=== PATIENT | male | born 1990 | race Caucasian/White ===

== ENCOUNTER 2024-10-02 11:44 | Inpatient (IN) | payer OTHER, SELFPAY ==
[2024-10-02 12:28] LABS: #Basophils 0.03 10x3/uL (0.0-0.2); #Eosinophils 0.19 10x3/uL (0.0-0.5); #Monocytes 1.16 10x3/uL (0.0-1.1); #Neutrophils 15.81 10x3/uL (1.5-8.4); %Basophils 0.2 % (0.0-2.0); %Lymphocytes 5.2 % (18.0-47.0); %Monocytes 6.4 % (0.0-10.0); %Neutrophils 86.7 % (40.0-75.0); Hematocrit 44.8 % (38.8-50.0); Hemoglobin 15.3 g/dL (13.5-17.5); Mean Corpuscular HGB CONC 34.2 g/dL (32.0-36.0); Mean Corpuscular Volume 90.7 fL (81.2-95.1); Platelet Count 249 10x3/uL (150-450); RBC Distribution Width 12.4 % (11.5-14.5); Red Blood Cell (RBC) Count 4.94 10x6/uL (4.32-5.72); White Blood Cell (WBC) Count 18.22 10x3/uL (3.5-10.5)
[2024-10-02 12:42] LABS: ALT (SGPT) 29 U/L (Less than 45); AST (SGOT) 28 U/L (11-34); Albumin 4.2 g/dL (3.1-4.5); Alkaline Phosphatase 55 U/L (40-110); Anion Gap 12 mmol/L (10-20); BUN (Urea Nitrogen) 9 mg/dL (8.9-20.6); Bilirubin, Total 0.5 mg/dL (0.3-1.2); Calc. Creatinine Clearance 0 mL/min (70-130); Calcium 8.4 mg/dL (7.8-10.44); Carbon Dioxide 25 mmol/L (22-29); Chloride 103 mmol/L (98-107); Estimated GFR 118; Globulin 3.3 g/dL (2.4-3.5); Glucose 113 mg/dL (70-105); Potassium 3.8 mmol/L (3.5-5.1); Protein, Total 7.5 g/dL (6.0-8.3); Sodium 136 mmol/L (136-145)
[2024-10-02] MEDS ORDERED: Ketorolac Tromethamine 30 MG (1 mL) VIAL ONE (13:53)
[2024-10-02] MEDS ORDERED: Cefepime 2 GM VIAL ONE (14:49)
[2024-10-02] MEDS ORDERED: Acetaminophen 500 MG TAB ONE (14:59)
[2024-10-02 15:41] LABS: Bilirubin Neg (Negative); Blood, Urine Negative (Negative); Glucose, Urine (Dipstick) Normal (Negative); Ketone, Urine Negative (Negative); Leukocyte 25 (Negative); Nitrite Negative (Negative); Protein, Urine (Dipstick) 30 mg/dl (Neg-Trace); Specific Gravity, Urine 1.005 (1.005-1.030)
[2024-10-02 15:42] LABS: Clarity Hazy (Clear)
[2024-10-02] MEDS ORDERED: Acetaminophen/Codeine 30-300mg Tablet PO PRN (16:48)
[2024-10-02] MEDS ORDERED: Ondansetron PF 4 MG/2 ML Vial IVP PRN (16:48)
[2024-10-02] MEDS ORDERED: Ondansetron ODT 4 MG TAB PO PRN (16:48)
[2024-10-02 16:49] LABS: CAUTI Indications for Culture Fever or rigors; RBC/HPF 0-3 HPF (0-3); WBC/HPF 0-3 HPF (0-3)
[2024-10-02 16:50] LABS: Bacteria/HPF 1+ HPF (None Seen); Transitional Epithelial 0-3 HPF (None Seen)
[2024-10-02 16:52] LABS: Mucous/LPF 1+ LPF (<2+); Urine Culture Reflex No No
[2024-10-02] MEDS: VANCOMYCIN 2 GRAM/400 ML BAG 2 GM in Premix 1 BAG IVPB SCH (17:33)
[2024-10-02 17:57] VITALS: BMI 48.4
[2024-10-02] MEDS: Acetaminophen/Codeine 30-300mg Tablet PO PRN (18:05)
[2024-10-02] MEDS: Ipratropium/Albuterol 3 ML NEB NEB PRN (18:53)
[2024-10-02] MEDS: VANCOMYCIN 1.75 GM/350 ML BAG 1.75 GM in Premix 1 BAG IVPB SCH (22:18)
[2024-10-02] MEDS: Ibuprofen 200 MG TAB PO SCH (22:43)
[2024-10-03] MEDS: Cefepime 2 GM in Sodium Chloride 0.9% 100 ML IVPB SCH (02:08)
[2024-10-03 05:20] LABS: #Basophils 0.05 10x3/uL (0.0-0.2); #Eosinophils 0.03 10x3/uL (0.0-0.5); #Monocytes 1.16 10x3/uL (0.0-1.1); #Neutrophils 15.08 10x3/uL (1.5-8.4); %Basophils 0.3 % (0.0-2.0); %Eosinophils 0.2 % (0.0-6.0); %Lymphocytes 9.3 % (18.0-47.0); %Monocytes 6.4 % (0.0-10.0); %Neutrophils 83.4 % (40.0-75.0); Hematocrit 39.3 % (38.8-50.0); Hemoglobin 13.8 g/dL (13.5-17.5); Mean Corpuscular HGB CONC 35.1 g/dL (32.0-36.0); Mean Corpuscular Hemoglobin 31.9 pg (27.0-33.0); Mean Corpuscular Volume 90.8 fL (81.2-95.1); Platelet Count 226 10x3/uL (150-450); RBC Distribution Width 12.7 % (11.5-14.5); Red Blood Cell (RBC) Count 4.33 10x6/uL (4.32-5.72); White Blood Cell (WBC) Count 18.08 10x3/uL (3.5-10.5)
[2024-10-03 05:40] LABS: Vancomycin, Random 20.2 ug/mL (See Comment)
[2024-10-03 05:43] LABS: Anion Gap 14 mmol/L (10-20); BUN (Urea Nitrogen) 11 mg/dL (8.9-20.6); Calc. Creatinine Clearance 270 mL/min (70-130); Calcium 7.8 mg/dL (7.8-10.44); Carbon Dioxide 19 mmol/L (22-29); Chloride 109 mmol/L (98-107); Estimated GFR 116; Glucose 98 mg/dL (70-105); Potassium 3.5 mmol/L (3.5-5.1); Sodium 138 mmol/L (136-145)
[2024-10-03] MEDS: Enoxaparin 40 MG (0.4 mL) SYRINGE SC SCH (09:14)
[2024-10-03] MEDS: metroNIDAZOLE 500 MG in Premix 1 BAG IVPB SCH (10:21)
[2024-10-03] MEDS: Acetaminophen 325 MG TAB PO PRN (10:25)
[2024-10-03 12:50] LABS: Hemoglobin A1c 5.3 % (4.0-6.0)
[2024-10-03] MEDS: VANCOMYCIN 1.25 GM/250 ML BAG 1.25 GM in Premix 1 BAG IVPB SCH (13:28)
[2024-10-04 05:18] LABS: #Basophils Less than 0.03 10x3/uL (0.0-0.2); #Eosinophils 0.22 10x3/uL (0.0-0.5); #Monocytes 1.35 10x3/uL (0.0-1.1); #Neutrophils 9.38 10x3/uL (1.5-8.4); %Basophils 0.2 % (0.0-2.0); %Eosinophils 1.7 % (0.0-6.0); %Lymphocytes 15.9 % (18.0-47.0); %Monocytes 10.3 % (0.0-10.0); %Neutrophils 71.4 % (40.0-75.0); Hematocrit 39.1 % (38.8-50.0); Mean Corpuscular HGB CONC 33.2 g/dL (32.0-36.0); Mean Corpuscular Hemoglobin 30.6 pg (27.0-33.0); Mean Platelet Volume 10.1 fL (7.4-10.4); Platelet Count 206 10x3/uL (150-450); RBC Distribution Width 12.8 % (11.5-14.5); Red Blood Cell (RBC) Count 4.25 10x6/uL (4.32-5.72); White Blood Cell (WBC) Count 13.12 10x3/uL (3.5-10.5)
[2024-10-04 05:22] LABS: Anion Gap 13 mmol/L (10-20); BUN (Urea Nitrogen) 8 mg/dL (8.9-20.6); Calc. Creatinine Clearance 364 mL/min (70-130); Calcium 7.7 mg/dL (7.8-10.44); Carbon Dioxide 20 mmol/L (22-29); Chloride 111 mmol/L (98-107); Estimated GFR 127; Glucose 85 mg/dL (70-105); Potassium 4.1 mmol/L (3.5-5.1); Sodium 140 mmol/L (136-145); Vancomycin, Random 13.3 ug/mL (See Comment)
[2024-10-05 03:58] LABS: #Basophils 0.04 10x3/uL (0.0-0.2); #Eosinophils 0.28 10x3/uL (0.0-0.5); #Monocytes 0.97 10x3/uL (0.0-1.1); #Neutrophils 6.29 10x3/uL (1.5-8.4); %Basophils 0.4 % (0.0-2.0); %Eosinophils 2.8 % (0.0-6.0); %Lymphocytes 23.2 % (18.0-47.0); %Monocytes 9.7 % (0.0-10.0); %Neutrophils 63.2 % (40.0-75.0); Hematocrit 38.1 % (38.8-50.0); Hemoglobin 13.5 g/dL (13.5-17.5); Mean Corpuscular HGB CONC 35.4 g/dL (32.0-36.0); Mean Corpuscular Hemoglobin 31.8 pg (27.0-33.0); Mean Corpuscular Volume 89.9 fL (81.2-95.1); Mean Platelet Volume 9.7 fL (7.4-10.4); Platelet Count 221 10x3/uL (150-450); RBC Distribution Width 12.7 % (11.5-14.5); Red Blood Cell (RBC) Count 4.24 10x6/uL (4.32-5.72); White Blood Cell (WBC) Count 9.96 10x3/uL (3.5-10.5)
[2024-10-05 04:29] LABS: Anion Gap 13 mmol/L (10-20); BUN (Urea Nitrogen) 8 mg/dL (8.9-20.6); Calc. Creatinine Clearance 370 mL/min (70-130); Calcium 8.3 mg/dL (7.8-10.44); Carbon Dioxide 21 mmol/L (22-29); Chloride 112 mmol/L (98-107); Estimated GFR 128; Glucose 91 mg/dL (70-105); Sodium 142 mmol/L (136-145)
[2024-10-05 13:20] VITALS: BP 129/72; TEMP 97.3
== END 2024-10-05 13:48 | disposition home or self-care (01) | DRG 872 ==
LOC: SUATTDRO 11:44 → CSHERS 11:44 → CSHTELE 16:26
PROVIDERS: ADMIT Family Medicine; ATTEND Internal Medicine
DX: A41.9 Sepsis, unspecified organism (principal); L03.116 Cellulitis of left lower limb; F10.90 Alcohol use, unspecified, uncomplicated; R65.20 Severe sepsis without septic shock
CPT/HCPCS: 36415; 71045; 80048; 80053; 80202; 81001; 83036; 83605; 84145; 84443; 85025; 86140; 87040; 87428; 94640; 96374; 96375; 97139; J0692; J1650; J1885; J3370; J7620